=== PATIENT | female | born 1935 | race Caucasian/White ===

== ENCOUNTER → 2017-08-21 | Day surgery (SDC) | payer MEDICARE ==
[~2017-08-21] VITALS: Ht 154.9 cm; Wt 62.0 kg
[~2017-08-21] MED LIST: ACETAMINOPHEN 1000 MG/100 ML 100 ML IV SCH; AMLO2.5T PO; ASPI-516 CHEW; BUPIVACAINE LIPOSOME PF 1.3% 20 ML VIAL ONE; BUPIVACAINE/EPINEPHRINE 0.5% PF 30 ML VIAL ONE; CHLORHEXIDINE GLUCONATE 2 % 1 PACK (2 CLOTHS) TOPICAL PRN; FAMOTIDINE 20 MG/2 ML VIAL ONE; KETOROLAC TROMETHAMINE 30 MG/ML (IVP) VIAL ONE; LABE100T2 PO; LACTATED RINGER'S 1000 ML IV PRN; LOVA40TA PO; METOPROLOL TARTRATE 25 MG TAB PO PRN; MEVA40TA PO; MIDAZOLAM HCL 2 MG/2 ML VIAL ONE; POVIDONE IODINE 5% (ANTISEPSIS KIT) 4 APPLICATIONS EACH NARE PRN; SERT-132 PO; SODIUM CHLORID 0.9% 500 ML IV PRN; ZOLO50TA PO; ceFAZolin 2 GM PREMIX 50 ML IV SCH
--- NOTE | 2017-08-21 12:19 | PD.OP ---
cc: Isaias Hutchinson MD; Harris Fajardo MD Operative Report Date of Surgery: August 21, 2017 Preoperative Diagnosis: Right inguinal hernia Postoperative Diagnosis: Right inguinal hernia Procedure: Repair of right inguinal hernia with pro-sas programmer remote mesh Anesthesia: General Surgeon: Isaias Hutchinson Housing Court Judge(s): none Operation and Findings: Operative findings: The patient found to have a very large direct inguinal hernia with thick-walled sac. The sac extended down toward the labia but contained no incarcerated viscera. Operative procedure: The patient brought to the operating room after satisfactory sedation by anesthesia the abdomen was prepped and draped in usual sterile fashion. 0.5% Marcaine with epinephrine was used to infiltrate the skin for local anesthesia. A transverse right inguinal incision was made and carried down sharply to the subcutaneous tissue with cautery being used for hemostasis. The incision was deepened to the external oblique fascia which was opened in the direction of its fibers down to and through the external ring. The underside of the fascia was cleaned. The direct inguinal hernia sac was identified and dissected free from the surrounding structures. The round ligament was taken down and divided with the cautery with excellent hemostasis. After dissecting the hernia sac free the sac was circumferentially scored to allow reduction within the properitoneal space without problem. The inguinal floor was then closed with interrupted 0 Vicryl sutures brought between the superior aspect of the inguinal floor including the internal oblique fascia which was brought into close approximation with the shelving edge of the inguinal ligament. After closure of the floor piece of pro-sas programmer remote mesh was cut to the appropriate shape and secured anterior to the repair by pushing his posterior Vicryl hooks into the surrounding tissues. It was seen to cover the defect and repair very well on all sides. The mesh was affixed to the pubis with a 0 Prolene. Hemostasis was checked for and found to be satisfactory. The external oblique fascia was closed with a running 3-0 Vicryl suture. The subcutaneous tissue was closed with interrupted 3-0 Vicryl sutures and skin closed with interrupted 4-0 PDS subcuticular sutures. Should be noted that approximately 40 mL's of 20 mL's of 1.3% Exparel and 20 mL's of saline were infiltrated into the surrounding tissues without problem. Patient was then awakened and taken from the operating room in satisfactory condition, having tolerated the procedure without problem. Estimated blood loss was less than 5 mL's. The instrument, sponge, needle counts were reported as being correct 2 at the end of the procedure. Isaias Hutchinson MD August 21, 2017 12:19
[2017-08-21 14:02] VITALS: BP 133/83; PULSE 82; RESP 16; TEMP 97.9; O2SAT 95
== END | disposition home or self-care (01) ==
LOC: PHSDC 08:09
PROVIDERS: ATTEND Surgery
DX: K40.90 Unilateral inguinal hernia, without obstruction or gangrene, not specified as recurrent (principal); I12.9 Hypertensive chronic kidney disease with stage 1 through stage 4 chronic kidney disease, or unspecified chronic kidney disease; N18.2 Chronic kidney disease, stage 2 (mild); E78.5 Hyperlipidemia, unspecified; F33.9 Major depressive disorder, recurrent, unspecified; E55.9 Vitamin D deficiency, unspecified
CPT/HCPCS: 00830; 49505; C1781; C9290; J0131; J0690; J1885; J2250; J3010; J7120